=== PATIENT | male | born 1995 | race Caucasian/White ===

== ENCOUNTER 2018-11-17 14:13 | Outpatient (CLI) | payer OTHER ==
[2018-11-29 09:28] LABS: eGFR (Non-African) > 60
== END 2018-11-17 14:30 ==
LOC: LAB 14:13
PROVIDERS: ATTEND Family Medicine
DX: R07.89 Other chest pain (principal); R00.2 Palpitations
CPT/HCPCS: 36415; 80053; 84439; 84443; 84481; 93005